=== PATIENT | female | born 1980 | race Hispanic/Latino ===

== ENCOUNTER 2019-11-27 20:58 | Observation (INO) | payer SELFPAY ==
[~2019-11-27] VITALS: Ht 160 cm; Wt 63.6 kg
[~2019-11-27 20:58] MED LIST: LORTAB 7.57.5 MG PO; LORTAB5 PO; NO; [UNRECOGNIZED DRUG - CODE]
--- NOTE | 2019-11-27 20:58 | NUR ---
PT REFUSED WHEELCHAIR AND AMBULATED TO ROOM WITH A STEADY GAIT.
[2019-11-27 21:59] LABS: HEMATOCRIT 41.4 % (37.0-47.0); HEMOGLOBIN 13.2 g/dl (12.0-16.0); IMMATURE GRANULOCYTES 0.4 % (0.0-5.0); MEAN CELL VOLUME 86.3 fL CALC (80.0-100.0); MEAN CORPUSCULAR HGB 27.5 pG CALC (26.0-32.0); MEAN CORPUSCULAR HGB CONC 31.9 g/dL CAL (32.0-36.0); NEUT# 1.61 thou/uL (2.00-7.15); RED BLOOD COUNT 4.8 mill/uL (4.20-5.60); RED CELL DISTRI WIDTH 14.6 % (11.5-15.5)
--- NOTE | 2019-11-27 22:00 | NUR ---
resting quietly awaiting test results
[2019-11-27 22:21] LABS: ALBUMIN 4.8 g/dL (3.2-5.0); ALKALINE PHOSPHATASE 116 u/l (38-126); ANION GAP 14 (6-22 (CALC)); BILIRUBIN, TOTAL 0.3 mg/dL (0.0-1.4); BUN 7 mg/dL (7-17); BUN/CREATININE RATIO 11 (12-20 (CALC)); CARBON DIOXIDE 22 mmol/l (22-30); CHLORIDE 104 mmol/l (95-108); CREATININE 0.6 mg/dL (0.5-1.0); GFR > 60 ML/MIN (>=60 (CALC)); GFR FOR AFR.AMER. > 60 ML/MIN (>=60 (CALC)); POTASSIUM 3.9 mmol/l (3.5-5.1); SGOT/AST 33 u/l (14-36); SODIUM 136 mmol/l (137-146); TOTAL PROTEIN 8.7 g/dL (6.3-8.2)
[2019-11-27 22:33] LABS: MYOGLOBIN 13 ng/mL (0 - 62)
[2019-11-27 22:42] LABS: URINE BILIRUBIN - DIPSTICK NEGATIVE (NEGATIVE); URINE BLOOD DIPSTICK NEGATIVE (NEGATIVE); URINE COLOR YELLOW; URINE GLUCOSE - DIPSTICK NEGATIVE (NEGATIVE); URINE KETONE NEGATIVE (NEGATIVE); URINE LEUK ESTERASE NEGATIVE (NEGATIVE); URINE NITRITE - DIPSTICK NEGATIVE (Negative); URINE PH 6.5 (4.5-8.0); URINE PROTEIN - DIPSTICK NEGATIVE (NEG-TRACE); URINE SPECIFIC GRAVITY 1.025; URINE UROBILINOGEN - DIPSTICK 0.2 E.U./dL (0.2)
--- NOTE | 2019-11-27 23:00 | NUR ---
AWAITING DISPO. PAIN FREE. VSS. NAD.
--- NOTE | 2019-11-28 | NUR ---
NO CHANGE IN EXAM.
--- NOTE | 2019-11-28 07:00 | NUR ---
REPORT RECIEVED FROM JONNIE RN; PT RESTING ON STRETCHER; NO S/S OF DISTRESS NOTED; MONITORING DEVICES IN PLACE; PT DENIES ANY CP OR SOB; VSS; PT ADVISED OF POC; MEAL TRAY PROVIDED; CALL LIGHT WITHIN REACH; WILL CONTINUE TO MONITOR
--- NOTE | 2019-11-28 07:25 | NUR ---
REPORT GIVEN TO ZIGGY [employer].
--- NOTE | 2019-11-28 07:41 | NUR ---
PT TRANSPORTED VIA WHEELCHAIR TELEMETRY IN PLACE TO [facility]
[2019-11-28] MEDS ORDERED: DECADRON6 MG PO (09:35)
[2019-11-28] MEDS ORDERED: ZPAK PO (09:36)
--- NOTE | 2019-11-28 10:02 | NUR ---
The patient is waiting for disposition either to the floor or home.
--- NOTE | 2019-11-28 11:17 | NUR ---
waiting for discharge
--- NOTE | 2019-11-28 12:33 | NUR ---
The patient is to be discharged, waiting for doctor. lunch tray given.
--- NOTE | 2019-11-28 14:07 | NUR ---
The patient is to go home, waiting for doctor to discharge.
--- NOTE | 2019-11-28 15:23 | NUR ---
discharge instructions given. The patient is waiting for respiratory for an spirometer
[2019-11-28 15:24] VITALS: BP 120/85
--- NOTE | 2019-11-28 17:28 | NUR ---
Pt requesting prescriptions to be called to [facility] in [place] since they were sent to [facility]. Pharmacist notified
--- NOTE | 2019-12-02 18:13 | NUR ---
Pt called to obtain Covid 19 results. Verified name and . Gave results.
== END 2019-11-28 15:25 | disposition home or self-care (01) | DRG 178 ==
LOC: ED 20:58 → ED-I 11-28 00:17 → ED 11-28 00:32 → ED-I 11-28 00:33
PROVIDERS: Emergency Medicine; ADMIT Internal Medicine; ATTEND Internal Medicine
DX: U07.1 COVID-19 (principal); J98.11 Atelectasis; E78.5 Hyperlipidemia, unspecified
CPT/HCPCS: Q9967

== ENCOUNTER 2020-10-24 16:57 | Emergency (ER) | payer SELFPAY ==
[~2020-10-24] VITALS: Ht 160 cm; Wt 69.0 kg
[~2020-10-24 16:57] MED LIST changes: +DECADRON6 MG PO; +ZPAK PO
[2020-10-24 17:41] LABS: HEMATOCRIT 39.3 % (37.0-47.0); HEMOGLOBIN 12.6 g/dl (12.0-16.0); IMMATURE GRANULOCYTES 0.3 % (0.0-5.0); MEAN CELL VOLUME 87.3 fL CALC (80.0-100.0); MEAN CORPUSCULAR HGB CONC 32.1 g/dL CAL (32.0-36.0); NEUT# 3.38 thou/uL (2.00-7.15); RED BLOOD COUNT 4.5 mill/uL (4.20-5.60)
[2020-10-24 17:57] LABS: ANION GAP 15 (6-22 (CALC)); BUN 10 mg/dL (7-17); BUN/CREATININE RATIO 20 (12-20 (CALC)); CARBON DIOXIDE 24 mmol/l (22-30); CHLORIDE 104 mmol/l (95-108); CREATININE 0.5 mg/dL (0.5-1.0); GFR > 60 ML/MIN (>=60 (CALC)); GFR FOR AFR.AMER. > 60 ML/MIN (>=60 (CALC)); POTASSIUM 3.6 mmol/l (3.5-5.1); SODIUM 139 mmol/l (137-146)
[2020-10-24] MEDS ORDERED: FENOFIBRATE145 MG PO (18:49)
[2020-10-24] MEDS ORDERED: ACYCLOVIR400 MG PO (18:50)
[2020-10-24] MEDS ORDERED: NEBULIZER KIT/TUBING PO (19:01)
[2020-10-24] MEDS ORDERED: PROVENTIL0.083 % IN (19:01)
[2020-10-24 21:20] VITALS: BP 116/68
== END 2020-10-24 21:18 | disposition home or self-care (01) | DRG 313 ==
LOC: ED 16:57
PROVIDERS: Family Medicine
DX: R07.89 Other chest pain (principal); E78.00 Pure hypercholesterolemia, unspecified

== ENCOUNTER 2021-02-02 09:13 | Emergency (ER) | payer SELFPAY ==
[~2021-02-02] VITALS: Ht 160 cm; Wt 66.8 kg
[~2021-02-02 09:13] MED LIST changes: +ACYCLOVIR400 MG PO; +FENOFIBRATE145 MG PO; +NEBULIZER KIT/TUBING PO; +PROVENTIL0.083 % IN
[2021-02-02] MEDS ORDERED: VITAMIN D5000 UNI1 PO (10:24)
[2021-02-02] MEDS ORDERED: SIMVASTATIN5 MG PO (10:25)
[2021-02-02 11:05] VITALS: BP 114/56
[2021-02-02 11:27] LABS: ALBUMIN 4.6 g/dL (3.2-5.0); ALKALINE PHOSPHATASE 95 u/l (38-126); ANION GAP 13 (6-22 (CALC)); BILIRUBIN, TOTAL 0.4 mg/dL (0.0-1.4); BUN 8 mg/dL (7-17); BUN/CREATININE RATIO 13 (12-20 (CALC)); CARBON DIOXIDE 28 mmol/l (22-30); CHLORIDE 102 mmol/l (95-108); CREATININE 0.6 mg/dL (0.5-1.0); GFR > 60 ML/MIN (>=60 (CALC)); GFR FOR AFR.AMER. > 60 ML/MIN (>=60 (CALC)); LIPASE 51 u/l (23-300); POTASSIUM 3.5 mmol/l (3.5-5.1); SODIUM 140 mmol/l (137-146); TOTAL PROTEIN 8.3 g/dL (6.3-8.2)
[2021-02-02 11:28] LABS: SGOT/AST 38 u/l (14-36)
[2021-02-02 11:39] LABS: HEMATOCRIT 40.8 % (37.0-47.0); IMMATURE GRANULOCYTES 0.2 % (0.0-5.0); MEAN CELL VOLUME 88.9 fL CALC (80.0-100.0); MEAN CORPUSCULAR HGB 28.3 pG CALC (26.0-32.0); MEAN CORPUSCULAR HGB CONC 31.9 g/dL CAL (32.0-36.0); NEUT# 2.95 thou/uL (2.00-7.15); RED BLOOD COUNT 4.59 mill/uL (4.20-5.60)
[2021-02-02] MEDS ORDERED: ZOFRAN4 M1 PO (13:26)
== END 2021-02-02 13:44 | disposition home or self-care (01) | DRG 392 ==
LOC: ED 09:13
PROVIDERS: Family Medicine
DX: K52.9 Noninfective gastroenteritis and colitis, unspecified (principal); E78.00 Pure hypercholesterolemia, unspecified; Z20.822 Contact with and (suspected) exposure to COVID-19